=== PATIENT | female | born 1960 | race African-American/Black ===

== ENCOUNTER 2021-05-06 19:27 | Emergency (ER) | payer OTHER, SELFPAY ==
--- NOTE | ~2021-05-06 | XR_ITS ---
EXAMINATION: XR chest 1V CLINICAL INFORMATION: Cough, shortness of breath COMPARISON: None TECHNIQUE: XR chest 1V Tubes and lines: None Lungs and pleura: Both lungs are clear. Heart and mediastinum: The mediastinum is within normal limits.. Bones/soft tissue: Skeletal structures included are normal for patient's age. XR/XR chest 1V IMPRESSION: No radiographic evidence of acute infiltrates or failure.
[2021-05-06 19:39] VITALS: BP 159/81; PULSE 98; RESP 18; TEMP 36.6; O2SAT 98; BMI 34.0
[2021-05-06 20:14] LABS: COVID-19 Test Negative (Negative)
[2021-05-06 20:47] VITALS: BP 173/92; PULSE 79; RESP 18; TEMP 36.5; O2SAT 97
--- NOTE | 2021-05-06 21:59 | ED.URI ---
HPI - URI/Sore Throat General Chief Complaint: Upper Respiratory Symptoms Stated Complaint: cough sob Time Seen by Provider: 05/06/21 20:52 Source: patient Mode of arrival: ambulatory Limitations: no limitations History of Present Illness HPI Narrative: 61-year-old female presents to ED for dry coughing, body aches, fatigue, and chills SINCE WEDNESDAY. Patient denies any chest pain, lower extremity swelling, calf pain, coughing up blood, dizziness, or shortness of breath on exertion. Patient states vaccinated against COVID-19. Related Data Previous Rx's Medication Instructions Recorded azithromycin 250 mg tablet See Rx Instructions .ROUTE 05/06/21 .COMPLEX #6 tab benzonatate 100 mg capsule 100 mg PO TID PRN #15 cap 05/06/21 prednisone 20 mg tablet 60 mg PO DAILY 5 Days #15 tab 05/06/21 Allergies Allergy/AdvReac Type Severity Reaction Status Date / Time No Known Allergies Allergy Verified 05/06/21 21:58 Review of Systems Review of Systems: Yes all other systems are reviewed and are negative Constitutional: Constitutional: Reports as per HPI, Reports no additional constitutional complaints, Reports body ache(s), Reports chills, Reports fatigue and Denies snoring Eyes: Eyes: Reports as per HPI and Reports no additional eye complaints ENT: Reports system reviewed and no additional complaints, except as documented and Reports as per HPI Cardiovascular: Cardiovascular: Reports as per HPI, Reports no additional cardiovascular complaints, Denies chest pain, Denies dyspnea and Denies dyspnea on exertion Respiratory: Respiratory: Reports as per HPI, Reports no additional respiratory complaints, Reports no additional respiratory complaints, Reports cough, Denies hemoptysis, Denies excessive phlegm production, Denies pain on inspiration, Denies pain with cough, Denies dyspnea, Denies dyspnea on exertion, Denies snoring, Denies stridor and Denies wheezing Gastrointestinal: Gastrointestinal: Reports as per HPI and Reports no additional gastrointestinal complaints Genitourinary: Genitourinary: Reports no additional female genitourinary complaints and Reports as per HPI Musculoskeletal: Musculoskeletal: Reports no additional musculoskeletal complaints and Reports as per HPI Neurologic: Reports system reviewed and no additional complaints, except as documented and Reports as per HPI Psychiatric: Psychiatric: Reports no additional psychiatric complaints and Reports as per HPI Endocrine: Endocrine: Reports no additional endocrine complaints, Reports as per HPI and Reports fatigue Allergic/Immunologic: Allergic/Immunologic: Denies wheezing [facility] Social History Social History Advance Directives: No Physical Exam Vital Signs: Vital Signs: Last Vital Signs Temp 97.7 F 05/06/21 20:47 Pulse 79 05/06/21 20:47 Resp 18 05/06/21 20:47 BP 173/92 H 05/06/21 20:47 Pulse Ox 97 05/06/21 20:47 BMI result Body Mass Index 34.0 Const: General: cooperative, healthy appearing, comfortable, no acute distress, well developed, alert, awake and Physically active; No acute distress Orientation/consciousness: patient oriented x3 HENMT: Head: Yes normal to inspection, Yes No palpable skull fracture present, Yes normocephalic, Yes atraumatic, No abrasion, No Acrocyanosis present, No Kwon's sign, No contusion, No cranial bruits, No hematoma, No laceration, No occipital foramen tenderness, No palpable skull fracture, No raccoon eyes, No scalp lesion, No scalp tenderness, No Temporal artery tenderness present and No periorbital ecchymosis Eyes: General: appearance normal, both eyes and all related structures Neck: Neck: Yes normal visual inspection, Yes full ROM, Yes no lymphadenopathy, Yes no meningeal signs, Yes trachea midline, Yes supple, No anterior neck swelling and No tender Chest: Chest palpation & inspection: normal inspection of the chest and normal palpation of entire chest wall Resp: Effort & Inspection: normal respiratory effort and able to speak in complete sentences Auscultation: wheezes expiratory wheezes (SLIGHT) Cardio: Jugular venous distension: no JVD Heart sounds: S1 normal heart sound present and S2 normal heart sound present GI: Inspection: Yes normal to inspection and No abdominal wall ecchymosis Palpation (GI): Soft to palpation, not firm, nontender, no guarding and not rigid : General: No CVA tenderness and Yes no CVA tenderness Back/Spine/Pelvis: Back: no CVA tenderness, No CVA tenderness and No back tenderness Skin: General skin exam: no rashes or lesions noted and elasticity normal Neuro: General: patient oriented x3, gait normal, no meningeal signs and CN's II-XI intact bilaterally Cranial nerves: Yes CN's II-XII intact bilaterally Extrem: Other: Lower extremities negative for swelling, pitting edema, or calf tenderness General: Yes normal to inspection and Yes full ROM Psych: Appearance: grossly normal, well kempt and not disheveled Course Course Course Narrative: COVID swab and chest x-ray ordered. Reevaluation(s) Reevaluation #1: COVID swab came back negative. Chest x-ray negative for any pneumonia. History physical exam indicate uri/bronchitis. nOT Suspecting any cardiac abnormality. Denies having any chest pain. Patient denies any left shoulder, neck pain, or tingling in left upper extremity. Patient denies any nausea or any acid burning sensation in chest. Patient presently denies any shortness of breath. Patient states body aches, chills, dry cough. O2 saturation normal. Vital signs stable. Not suspecting respiratory distress. Patient ambulating WITHOUT ANy SHORTNESS OF BREATH AND WILL BE discharged with steroids with coughing medication. Time: 22:10 MDM - URI/Sore Throat MDM Narrative Medical decision making narrative: Bronchitis Lab Data Labs: Lab Results 05/06/21 Range/Units 19:52 COVID-19 (ANJELICA) Negative (Negative) COVID-19 Clin Com See Note Discharge Plan Discharge Clinical Impression: Upper respiratory infection, Bronchitis Patient Disposition: Home, Self-Care Instructions: Upper Respiratory Infection (ED), Acute Bronchitis (ED) Additional Instructions: COVID swab and chest x-ray came back normal. You will be treated as bronchitis. You're covid swab came back negative. Use your albuterol inhaler at home as needed. You will be discharged with steroids and coughing medication. Return to the ED for any chest pain, shortness of breath on exertion, swelling of lower extremities, calf pain, coughing up blood, fever, chills, nausea, vomiting, dizziness, weakness, neck pain, left shoulder pain, tingling/numbness left upper extremities, or any other concerning symptoms. Please follow-up with primary care provider Prescriptions: New prednisone 20 mg tablet 60 mg PO DAILY 5 Days Qty: 15 RF: 0 benzonatate 100 mg capsule 100 mg PO TID PRN (Reason: cough) Qty: 15 RF: 0 azithromycin 250 mg tablet See Rx Instructions .ROUTE .COMPLEX Qty: 6 RF: 0 Stand Alone Forms: Work/School Release Interventions: ED Discharge Assessment Last Done: 05/06/21 22:30 Discharge Date/Time: 05/06/21 22:31 Print Language: Latvian
== END 2021-05-06 22:31 | disposition home or self-care (01) ==
PROVIDERS: Emergency Provider Emergency Medicine; PCP Internal Medicine
DX: J20.8 Acute bronchitis due to other specified organisms (principal); M79.10 Myalgia, unspecified site; R05.9 Cough, unspecified; R06.02 Shortness of breath; Z79.899 Other long term (current) drug therapy; Z20.822 Contact with and (suspected) exposure to COVID-19
CPT/HCPCS: 36415; 71045; 87635; 99283; 99284

== ENCOUNTER 2022-03-01 12:31 | Emergency (ER) | payer OTHER, SELFPAY ==
--- NOTE | ~2022-03-01 | CT_ITS ---
EXAMINATION: CT ABDOMEN AND PELVIS WITH CONTRAST CLINICAL INFORMATION: Left lower abdominal pain COMPARISON: None TECHNIQUE: Multidetector volumetric images were obtained from the superior aspect of the liver through the pubic symphysis following administration 85 mL of Omnipaque 350 intravenous contrast. Sagittal and coronal reformatted images were obtained on the technologist's workstation. Oral contrast: Yes This CT examination was performed using dose optimization techniques as appropriate, variously including the following: *Automated exposure control *Adjustment of mA and/or kV according to patient size (this includes techniques or standardized protocols for targeted exams where dose is matched to indication/reason for exam; i.e. extremities or head) *Use of iterative reconstruction technique DLP: 639 mGy-cm FINDINGS: LUNG BASES: The visualized lung bases are unremarkable. LIVER, GALLBLADDER, AND BILIARY TREE: Enlarged fatty liver. No focal liver lesion or biliary duct dilatation. Small gallstone in the gallbladder. PANCREAS: Unremarkable. SPLEEN: Unremarkable. ADRENAL GLANDS: Unremarkable. KIDNEYS AND URETERS: Small bilateral low-attenuation renal lesions suggestive of cysts. Kidneys are otherwise unremarkable. BLADDER: Unremarkable. GASTROINTESTINAL TRACT: There is mild diverticulosis of the colon. There is a probable duodenal diverticulum adjacent to the head of the pancreas. There is question of mild wall thickening of the terminal ileum. There is question of a small bowel diverticulum in this region as well and some stranding of the surrounding fat. It is difficult to exclude of small bowel diverticulitis . Small and large bowel is otherwise normal. The appendix is normal.. ABDOMINAL WALL: Umbilical and periumbilical hernias containing fat. LYMPH NODES: Normal. VASCULAR: Unremarkable. PELVIC VISCERA: Lobular contour of the uterus and calcification probably representing a fibroid. Prominent pelvic vessels questionable for pelvic congestion, particularly on the left. OSSEOUS STRUCTURES: Degenerative changes of the lower lumbar spine. CT/CT abdomen pelvis w IV con IMPRESSION: Question wall thickening of the terminal ileum, small bowel diverticuli and mild diverticulitis of the terminal ileum. Mild diverticulosis of the colon. No evidence of colonic diverticulitis. Slightly enlarged fatty liver. Gallstone. Umbilical and periumbilical hernias containing fat. Question pelvic congestion and uterine fibroid. Fleischner guidelines were followed.
[2022-03-01 12:35] VITALS: BP 151/70; PULSE 79; RESP 16; TEMP 36.6; O2SAT 97; BMI 34.9
[2022-03-01 12:57] LABS: Appearance Urine Cloudy; Color Urine Yellow; Glucose Urine UA Negative (Negative); Leukocyte Esterase Urine Small (1+) (Negative); Nitrite Urine Negative (Negative); PH 8.5 (5.0-9.0); UMIC TRIGGER UA YES; Urine Blood Negative (Negative); Urine Ketones Negative (Negative); Urine Protein Negative (Neg-Trace)
[2022-03-01 12:59] LABS: Bacteria Urine None Seen (None Seen); Hyaline Casts Urine 0-2 /LPF (0-2); RBC Urine 0-2 /HPF (0-2)
--- NOTE | 2022-03-01 13:13 | ED_ITS ---
HPI - Abdominal Pain General Chief Complaint: Abdominal Pain Stated Complaint: L side stomach pains Time Seen by Provider: 03/01/22 13:12 History of Present Illness HPI narrative: Patient is 62-year-old female presents today with having abdominal pain. The abdominal pain it is left-sided. Associated with nausea. No vomiting. Patient is from home. Also notice a lot of gas. Burping. No coughing or congestion or upper respiratory symptoms. No diaphoresis. Patient is from home. Related Data Previous Rx's Medication Instructions Recorded azithromycin 250 mg tablet See Rx Instructions PO .COMPLEX #6 05/06/21 tabs benzonatate 100 mg capsule 100 mg PO TID PRN cough #15 caps 05/06/21 prednisone 20 mg tablet 60 mg PO DAILY 5 days #15 tabs 05/06/21 amoxicillin 875 mg-potassium 1 tab PO BID 2 weeks #28 tabs 03/01/22 clavulanate 125 mg tablet ondansetron 4 mg disintegrating 4 mg PO TID PRN nausea and 03/01/22 tablet vomiting 5 days #10 tabs Allergies Allergy/AdvReac Type Severity Reaction Status Date / Time No Known Allergies Allergy Verified 05/06/21 21:58 Review of Systems Review of Systems Positive abdominal pain on the left side Yes all other systems are reviewed and are negative [facility] Past Medical History Attestation statement: The following information was validated with the patient. Social History Social History Advance Directives: No Advance Directives Information Provided: Yes Physical Exam ED Vital Signs: Vital Signs - 24 hr 03/01/22 12:35 03/01/22 14:09 Temperature 97.8 F 97.9 F Pulse Rate 79 71 Respiratory Rate 16 14 Blood Pressure 151/70 H 144/59 H Pulse Oximetry 97 96 Oxygen Delivery Method Room Air Room Air BMI result Body Mass Index 34.9 Appearance: Alert. Oriented X3. No acute distress. Eyes: Pupils equal, round and reactive to light. ENT: Pharynx normal. Neck: Normal inspection. Neck supple. No lymph nodes noted. No crepitus CVS: Normal heart rate and rhythm. Pulses normal. Normal S1 and S2 Respiratory: No respiratory distress. Breath sounds normal. No Wheezing. No rales Abdomen: Mild left-sided tenderness no rebound or guarding Skin: Skin warm and dry. Normal skin color. Normal skin turgor. Extremities: No lower extremity edema. Neurovascular intact to all extremities. No Lacerations. No Rash Neuro: Oriented X 3. No motor deficit. No sensory deficit. Moving all extermities. No slurred speech MDM - Abdominal Pain MDM Narrative Medical decision making narrative: Positive left-sided abdominal pain. CT scan positive for mild diverticulitis. No abscess no perforation. We will go ahead and give a dose of Rocephin Flagyl here in the emergency department. Discharged home on Augmentin. Close follow- up on an outpatient basis. Repeat abdominal exam soft nontender. Patient's white count is normal. Medical Records Attestation: I reviewed the patient's medical records. Lab Data Attestation: I reviewed the patient's lab results. Result diagrams: 03/01/22 13:23 03/01/22 14:04 Labs: Lab Results 03/01/22 03/01/22 03/01/22 Range/Units 12:46 13:23 14:04 WBC 7.5 (4.8-10.8) X10*3/uL RBC 4.21 (4.20-5.50) X10*6/uL Hgb 12.9 (12.0-16.0) g/dl Hct 37.8 (37.0-47.0) % MCV 89.8 (80.0-98.0) fL MCH 30.6 (27.0-33.0) pg MCHC 34.1 (31.0-35.0) g/dl RDW 12.1 (11.0-16.0) % Plt Count 271 (160-400) X10*3/uL MPV 11.6 (9.4-12.3) fL Immature Gran % (Auto) 0.3 (0.0-0.4) % Neut % (Auto) 51.9 (45-73) % Lymph % (Auto) 36.3 (20-40) % [place] % (Auto) 7.5 (2-11) % Eos % (Auto) 3.5 (0-4) % Baso % (Auto) 0.5 (0-2) % Lymph # (Auto) 2.7 (1.2-4.9) X10*3/uL [place] # (Auto) 0.6 (0.1-1.2) X10*3/uL Eos # (Auto) 0.3 (0.0-0.4) X10*3/uL Baso # (Auto) 0.0 (0.0-0.2) X10*3/uL Abs Immat Gran (auto) 0.02 (0.00-0.03) X10*3/uL Absolute Neuts (auto) 3.9 (2.0-8.3) x10*3/uL Absolute Nucleated RBC 0.000 (0.0-0.012) X10*3/uL Nucleated RBC % (auto) 0.0 (0.0-0.2) /100WBC Sodium 140 (135-145) mmol/L Potassium 4.4 (3.3-5.1) mmol/L Chloride 103 (96-108) mmol/L Carbon Dioxide 25 (22-29) mmol/L Anion Gap 16 (12-20) BUN 18 H (9-16) mg/dL Creatinine 0.72 (0.5-1.4) mg/dL Estim Creat Clear Calc 77.5 Estimated GFR > 60 Random Glucose 149 H (60-115) mg/dL Calcium 9.7 (8.4-10.2) mg/dL Total Bilirubin < 0.2 (0.0-1.0) mg/dL Direct Bilirubin < 0.2 (0.0-0.5) mg/dL AST 21 (5-31) U/L ALT 23 (0-31) U/L Alkaline Phosphatase 63 (39-117) U/L Total Protein 7.3 (6.5-8.0) g/dL Albumin 4.4 (3.5-5.0) g/dL Lipase 47 (8-78) U/L Urine Color Yellow Urine Appearance Cloudy Urine pH 8.5 (5.0-9.0) Ur Specific [place] 1.020 (1.005-1.025) Urine Protein Negative (Neg-Trace) mg/dL Urine Glucose (UA) Negative (Negative) mg/dL Urine Ketones Negative (Negative) mg/dL Urine Blood Negative (Negative) Urine Nitrite Negative (Negative) Ur Leukocyte Esterase Small (1+) H (Negative) Urine RBC 0-2 (0-2) /HPF Urine WBC 6-10 H (0-5) /HPF Ur Squamous Epith Cells 3-5 (0-2) /HPF Urine Bacteria None Seen (None Seen) Hyaline Casts 0-2 (0-2) /LPF Discharge Plan Discharge Clinical Impression: Diverticulitis Patient Disposition: Home, Self-Care Instructions: Diverticulitis (ED) Prescriptions: New ondansetron 4 mg tablet,disintegrating 4 mg PO TID PRN (Reason: nausea and vomiting) 5 Days Qty: 10 0RF amoxicillin-pot clavulanate 875-125 mg tablet 1 tab PO BID 14 Days Qty: 28 0RF No Action prednisone 20 mg tablet 60 mg PO DAILY 5 Days Qty: 15 0RF benzonatate 100 mg capsule 100 mg PO TID PRN (Reason: cough) Qty: 15 0RF azithromycin 250 mg tablet See Rx Instructions .ROUTE .COMPLEX Qty: 6 0RF Rx Instructions: For 250 mg dose pack: take 500 mg today (day 1), then 250 mg for 4 days (days 2-5) Referrals: Rivera Chao MD [Primary Care Provider] -
[2022-03-01 13:27] LABS: MANUAL DIFF FLAG NO
[2022-03-01 13:28] LABS: Basophils Percent Auto 0.5 % (0-2); Eosinophils Absolute Auto 0.3 X10*3/uL (0.0-0.4); Eosinophils Percent Auto 3.5 % (0-4); Hematocrit 37.8 % (37.0-47.0); Hemoglobin 12.9 g/dl (12.0-16.0); Imm Gran Abs Auto 0.02 X10*3/uL (0.00-0.03); Imm Gran Pct Auto 0.3 % (0.0-0.4); Lymphocytes Absolute Auto 2.7 X10*3/uL (1.2-4.9); Lymphocytes Percent Auto 36.3 % (20-40); Mean Corpuscular HGB Conc 34.1 g/dl (31.0-35.0); Mean Corpuscular Hemoglobin 30.6 pg (27.0-33.0); Mean Corpuscular Volume 89.8 fL (80.0-98.0); Mean Platelet Volume 11.6 fL (9.4-12.3); Monocytes Absolute Auto 0.6 X10*3/uL (0.1-1.2); Monocytes Percent Auto 7.5 % (2-11); Neutrophils Absolute Auto 3.9 x10*3/uL (2.0-8.3); Neutrophils Percent Auto 51.9 % (45-73); Platelet Count 271 X10*3/uL (160-400); Red Blood Count 4.21 X10*6/uL (4.20-5.50); Red Cell Distribution Width 12.1 % (11.0-16.0); White Blood Count 7.5 X10*3/uL (4.8-10.8)
[2022-03-01] MEDS: HYDROmorphone HCl 0.5 MG/0.5 ML SYRINGE IVPUSH (13:32)
[2022-03-01] MEDS: ondansetron HCL 4 MG/2 ML VIAL IVPUSH (13:32)
[2022-03-01 14:09] VITALS: BP 144/59; PULSE 71; RESP 14; TEMP 36.6; O2SAT 96
[2022-03-01 14:46] LABS: Alanine Aminotransferase 23 U/L (0-31); Albumin Level 4.4 g/dL (3.5-5.0); Alkaline Phosphatase 63 U/L (39-117); Anion Gap 16 (12-20); Aspartate Amino Transferase 21 U/L (5-31); Bilirubin Direct < 0.2 mg/dL (0.0-0.5); Bilirubin Total < 0.2 mg/dL (0.0-1.0); Blood Urea Nitrogen 18 mg/dL (9-16); Calcium 9.7 mg/dL (8.4-10.2); Carbon Dioxide 25 mmol/L (22-29); Chloride 103 mmol/L (96-108); Creatinine Clr Calc Pharmacy 77.5; Estimated Glomerular Filt Rate > 60; Glucose Random 149 mg/dL (60-115); Lipase 47 U/L (8-78); Potassium 4.4 mmol/L (3.3-5.1); Sodium 140 mmol/L (135-145); Total Protein 7.3 g/dL (6.5-8.0)
[2022-03-01] MEDS: iohexoL 350 MG/ML 100 ML INFUS..BTL IV (15:04)
[2022-03-01 16:39] VITALS: BP 135/67; PULSE 70; RESP 16; TEMP 36.2; O2SAT 97
== END 2022-03-01 16:54 | disposition home or self-care (01) ==
PROVIDERS: Emergency Provider Emergency Medicine Emergency Medical Services; PCP Internal Medicine
DX: K57.32 Diverticulitis of large intestine without perforation or abscess without bleeding (principal); R10.9 Unspecified abdominal pain; Z79.899 Other long term (current) drug therapy
CPT/HCPCS: 36415; 74177; 80048; 80076; 81001; 83690; 85025; 96374; 96375; 99283; J1170; J2405; Q9967

== ENCOUNTER 2022-10-17 07:23 | Outpatient (REF) | payer OTHER, SELFPAY ==
--- NOTE | ~2022-10-17 | MM_ITS ---
EXAMINATION: MM SCREENING DIGITAL BREAST TOMOSYNTHESIS, BILATERAL CLINICAL INFORMATION: Screening. Asymptomatic. The lifetime risk of breast cancer based on the Tyrer-Cuzick Model is 4%. COMPARISON: Outside mammography: 03/07/2019, 03/01/2019, 03/13/2017, 01/10/2016 ([facility]). TECHNIQUE: Digital breast tomosynthesis is performed in both the craniocaudal and mediolateral oblique views along with computer-aided detection (CAD). Synthesized 2D images are generated from the tomosynthesis. FINDINGS: There are scattered areas of fibroglandular density (ACR BI-RADS breast composition Category b). Parenchymal pattern is similar to prior outside studies. There is no developing density or interval mass or architectural abnormality. There are increased bilateral random scattered round, coarse, and ductal secretory calcifications. The axilla and skin contours are unremarkable. No significant changes from prior outside studies. MM/MM tomosynthesis screening BI IMPRESSION: No mammographic evidence of malignancy. ASSESSMENT: BI-RADS 2: Benign RECOMMENDATION: Routine annual mammography screening. This patient's information was entered into a reminder system with a target due date for their next mammogram.
== END 2022-10-17 07:24 | disposition home or self-care (01) ==
LOC: HO.MAMMO 07:23
PROVIDERS: PCP Internal Medicine; Visit Provider Internal Medicine
DX: Z12.31 Encounter for screening mammogram for malignant neoplasm of breast (principal)
CPT/HCPCS: 77063; 77067

== ENCOUNTER → 2022-11-10 08:48 | Outpatient (BNVA) | payer OTHER, SELFPAY | PROVIDERS: PCP Internal Medicine; Visit Provider Surgery Vascular Surgery | DX: I83.12 Varicose veins of left lower extremity with inflammation (principal) | CPT/HCPCS: 99202 ==

== ENCOUNTER 2022-11-25 08:04 | Outpatient (REF) | payer OTHER, SELFPAY ==
--- NOTE | ~2022-11-25 | US_ITS ---
EXAMINATION: US LOWER EXTREMITY VENOUS (REFLUX EXAM), BILATERAL CLINICAL INDICATION: Varicose veins COMPARISON: None. TECHNIQUE: Color flow triplex imaging and compression Doppler was performed to evaluate both the deep and the superficial systems bilaterally. To evaluate the superficial system, the examination was performed in the upright position. Color-flow Doppler ultrasound and compression ultrasound were utilized. In addition, maneuvers were utilized to demonstrate reflux. FINDINGS: 1. DEEP VENOUS ULTRASOUND OF THE RIGHT LOWER EXTREMITY: Common Femoral Vein: Compressible, normal respiratory variation and augmented flow. Femoral Vein: Compressible, normal color flow and augmentation. Popliteal Vein: Compressible, normal augmentation. Deep Reflux: There is no evidence of reflux in the deep system in either the common femoral vein or the popliteal vein. There is no evidence of a Raphael's cyst. 2. SUPERFICIAL ULTRASOUND WITH DOPPLER OF RIGHT LOWER EXTREMITY: GREAT SAPHENOUS VEIN: Saphenofemoral Junction: 0.7 cm; Reflux: 0 ms Proximal Thigh: 0.5 cm; Reflux: 0 ms Mid Thigh: 0.4 cm; Reflux: 0 ms Above Knee: 0.3 cm; Reflux: 0 ms At Knee: 0.5 cm; Reflux: 0 ms Below Knee: 0.3 cm; Reflux: 0 ms Mid Calf: 0.2 cm; Reflux: 0 ms Ankle: 0.3 cm; Reflux: 0 ms DUPLICATED MEDIAL GREAT SAPHENOUS VEIN: Diameter: 0.3cm Reflux: NA DUPLICATED LATERAL GREAT SAPHENOUS VEIN: Diameter: None imaged Reflux: NA SMALL SAPHENOUS VEIN: Proximal: 0.5 cm; Reflux: 0 ms Distal: 0.2 cm; Reflux: 0 ms VEIN OF GIACOMINI: Size: NA Reflux: NA PERFORATORS: Location: Multiple calf perforators Size: 0.2 cm Reflux: NA VARICOSITIES: Location: None imaged Size: NA Reflux: NA 3. DEEP VENOUS ULTRASOUND OF THE LEFT LOWER EXTREMITY: Common Femoral Vein: Compressible, normal respiratory variation and augmented flow. Femoral Vein: Compressible, normal color flow and augmentation. Popliteal Vein: Compressible, normal augmentation. Deep Reflux: There is no evidence of reflux in the deep system in either the common femoral vein or the popliteal vein. There is no evidence of a Raphael's cyst. 4. SUPERFICIAL ULTRASOUND WITH DOPPLER OF LEFT LOWER EXTREMITY: GREAT SAPHENOUS VEIN: Saphenofemoral Junction: 0.6 cm; Reflux: 0 ms Proximal Thigh: 0.4 cm; Reflux: 0 ms Mid Thigh: 0.3 cm; Reflux: 1144 ms Above Knee: 0.3 cm; Reflux: 0 ms At Knee: 0.3 cm; Reflux: 0 ms Below Knee: 0.2 cm; Reflux: 0 ms Mid Calf: 0.2 cm; Reflux: 0 ms Ankle: 0.2 cm; Reflux: 0 ms DUPLICATED MEDIAL GREAT SAPHENOUS VEIN: Diameter: 0.4cm Reflux: NA DUPLICATED LATERAL GREAT SAPHENOUS VEIN: Diameter: None imaged Reflux: NA SMALL SAPHENOUS VEIN: Proximal: 0.5 cm; Reflux: 0 ms Distal: 0.2 cm; Reflux: 0 ms VEIN OF GIACOMINI: Size: NA Reflux: NA PERFORATORS: Location: Multiple calf perforators Size: 0.2 cm Reflux: NA VARICOSITIES: Location: Thigh Size: 0.3cm Reflux: NA US/US venous duplex LE BI IMPRESSION: 1. Bilateral calf perforators and multiple left thigh varicose veins. 2. Segmental reflux in the left great saphenous vein at the mid thigh. 3. No significant reflux in the small saphenous veins bilaterally.
== END 2022-11-25 08:05 | disposition home or self-care (01) ==
LOC: HO.US 08:04
PROVIDERS: PCP Internal Medicine; Visit Provider Surgery Vascular Surgery
DX: I83.12 Varicose veins of left lower extremity with inflammation (principal)
CPT/HCPCS: 93970

== ENCOUNTER 2023-01-19 08:56 | Outpatient (AMB) | payer OTHER, SELFPAY ==
[2023-01-19 08:57] VITALS: BMI 32.1
--- NOTE | 2023-01-19 08:57 | A.OFFVIS_ITS ---
Intake Vital Signs 01/19/23 08:57 Height 5 ft 1 in Weight 170 lb BMI 32.1 Intake Visit Reasons: Follow Up 11/25 Intake Note: follow up US 11/25/22, pt states that she has swelling, numbness and pins and needles. States she has been wearing compression socks and they do help with swelling, she works on her feet everyday. States when she doesn't wear them she gets swelling. States she has large VV on bilateral LE. States she also sometimes gets numbness in her hands Accompanied by: Self / Same As Patient Allergies rubber, unspecified Allergy (Mild, Verified 01/19/23 09:01) Rash coppertone sunscreen Allergy (Severe, Uncoded 01/19/23 09:01) Rash HPI Follow Up 11/25 HPI Details Very pleasant 62-year-old female presents for follow-up regarding swollen lower extremities. She has undergone venous insufficiency testing. She reports that the stockings did provide a significant amount of relief. She has been doing relatively well with that. Of note she is a diabetic and a nonsmoker. Her only issue at the current time is left lateral thigh varicosity but it is not of significant discomfort for her. She now presents for follow-up with venous insufficiency testing. FOR[facility]LY [facility], LATER [facility] Medical History (Updated 01/19/23 @ 09:03 by CATHIE Presley) Diabetes Social History Patient Tobacco Use Status: Never used Tobacco Review of Systems Const Reports as per HPI ENT Reports no additional complaints Card Denies chest pain, Denies chest pain at rest and Denies chest pain with activity Resp Denies chest congestion and Denies cough GI Reports no additional complaints Musc Details: pain over varicosities, aching of lower extremities, swelling, cramping, heaviness and tiredness, itching Denies abnormal gait Skin/Breast Reports pruritus and Denies wounds Neuro Reports no additional complaints and Denies abnormal gait Psych Denies no additional complaints Physical Exam Vital Signs: BMI result Body Mass Index 32.1 Const General: cooperative, healthy appearing and comfortable Orientation/consciousness: oriented to person, oriented to place and oriented to time Neck Carotids: no bruits Chest Chest palpation & inspection: normal inspection of the chest and normal palpation of entire chest wall Resp Effort & Inspection: normal respiratory effort and able to speak in complete sentences Cardio Rate: regular rate Heart sounds: S1 normal heart sound present and S2 normal heart sound present Peripheral pulses: Peripheral pulses 2+ throughout GI Inspection: Yes normal to inspection Skin Other: +2 edema, large rope-like varicosities greater than 4 mm left lateral thigh CEAP Classification C4 - skin color changes Ep - Etiology Primary As - superficial veins P - reflux General skin exam: dry skin Neuro General: oriented to person, oriented to place and oriented to time Extrem Right lower extremity: full ROM, normal capillary refill and edema Left lower extremity: full ROM, normal capillary refill and edema Psych Mental Status: mental status grossly normal Results Reviewed Results Reviewed: Brief summary of venous insufficiency testing is as follows: right great saphenous vein: negative right small saphenous vein: negative right accessory vein: none present left great saphenous vein: negative left small saphenous vein: negative left accessory vein: none present Please note there is no evidence of any venous aneurysms or significant tortuosity Assessment & Plan Assessment & Plan (1) Varicose veins of left lower extremity with inflammation: Code(s): I83.12 - Varicose veins of left lower extremity with inflammation Plan: In short patient is negative for any significant venous insufficiency. Would continue with conservative measures including compression elevation and exercise. She does have this large left lateral thigh varicosity which she is relatively asymptomatic from at the current time. Should that become an issue in the future happy to see her back. She will follow up with us on an as-needed basis. Thank you for allowing us to assist in her care. If there are any questions or concerns please do not hesitate to contact us. Coding Level of Care Code Est Pt Level 4 (89888) Diagnoses Varicose veins of left lower extremity with inflammation I83.12
== END 2023-01-19 09:24 | disposition home or self-care (01) ==
PROVIDERS: PCP Internal Medicine; Visit Provider Surgery Vascular Surgery
DX: I83.12 Varicose veins of left lower extremity with inflammation (principal)
CPT/HCPCS: 99213

== ENCOUNTER → 2023-01-19 08:56 | Outpatient (BNVA) | payer OTHER, SELFPAY | PROVIDERS: PCP Internal Medicine; Visit Provider Surgery Vascular Surgery | DX: I83.12 Varicose veins of left lower extremity with inflammation (principal) | CPT/HCPCS: 99212 ==

== ENCOUNTER 2023-02-25 11:03 | Outpatient (REF) | payer OTHER, SELFPAY ==
--- NOTE | ~2023-02-25 | XR_ITS ---
EXAMINATION: XR CHEST CLINICAL INFORMATION: 1 month of cough COMPARISON: 05/06/2021 TECHNIQUE: 2 views of the chest were obtained. FINDINGS: No significant abnormality is noted involving the heart, lungs, mediastinum, bony thorax or soft tissues. XR/XR chest 2V IMPRESSION: Unremarkable examination.
== END 2023-02-25 11:04 | disposition home or self-care (01) ==
LOC: HO.HHCX 11:03
PROVIDERS: Visit Provider Family Medicine
DX: J40 Bronchitis, not specified as acute or chronic (principal)
CPT/HCPCS: 71046

== ENCOUNTER 2023-11-04 07:38 | Outpatient (REF) | payer BC, SELFPAY ==
--- NOTE | ~2023-11-04 | MM_ITS ---
EXAMINATION: MM SCREENING DIGITAL BREAST TOMOSYNTHESIS, BILATERAL CLINICAL INFORMATION: Screening. Asymptomatic. COMPARISON: Mammography: This study is compared with prior exams dating back to 2019. TECHNIQUE: Digital breast tomosynthesis is performed in both the craniocaudal and mediolateral oblique views along with computer-aided detection (CAD). Synthesized 2D images are generated from the tomosynthesis. FINDINGS: The breasts are heterogeneously dense, which may obscure small masses (ACR BI-RADS breast composition Category c). There are no significant masses, abnormal calcifications, or other abnormalities. There is bilateral, unchanged calcifications in the anterior thirds of each breast. MM/MM tomosynthesis screening BI IMPRESSION: No mammographic evidence of malignancy. ASSESSMENT: BI-RADS BI-RADS 2 - Benign Findings RECOMMENDATION: Routine annual mammography screening. 1 year F/U This examination should not preclude the clinical evaluation of a suspicious palpable abnormality. This patient's information was entered into a reminder system with a target due date for their next mammogram.
== END 2023-11-04 07:39 | disposition home or self-care (01) ==
LOC: HO.MAMMO 07:38
PROVIDERS: PCP Internal Medicine; Visit Provider Internal Medicine
DX: Z12.31 Encounter for screening mammogram for malignant neoplasm of breast (principal)
CPT/HCPCS: 77063; 77067

== ENCOUNTER → 2023-11-04 08:00 | Outpatient (BNV) | payer BC, SELFPAY | PROVIDERS: PCP Internal Medicine; Visit Provider Radiology Diagnostic Radiology | DX: Z12.31 Encounter for screening mammogram for malignant neoplasm of breast (principal) | CPT/HCPCS: 77063; 77067 ==

== ENCOUNTER 2023-12-07 16:03 | Outpatient (REF) | payer BC, SELFPAY ==
[2023-12-07 18:03] LABS: Anion Gap 14 (12-20); Appearance Urine Clear; Blood Urea Nitrogen 20 mg/dL (9-16); Calcium 10.4 mg/dL (8.4-10.2); Carbon Dioxide 32 mmol/L (22-29); Chloride 100 mmol/L (96-108); Color Urine Yellow; Estimated Glomerular Filt Rate > 60; Glucose Fasting 149 mg/dL (60-99); Glucose Urine UA >=1000 mg/dL (Negative); Leukocyte Esterase Urine Negative (Negative); Nitrite Urine Negative (Negative); PH 6.5 (5.0-9.0); Potassium 3.9 mmol/L (3.3-5.1); Sodium 142 mmol/L (135-145); Specific Gravity - Urine >= 1.030 (1.005-1.025); UMIC TRIGGER UA YES; Urine Blood Negative (Negative); Urine Ketones Negative (Negative); Urine Protein Negative (Neg-Trace)
[2023-12-07 18:05] LABS: Bacteria Urine None Seen (None Seen); Hyaline Casts Urine 0-2 /LPF (0-2); RBC Urine 0-2 /HPF (0-2); Squamous Epithelial Cell Urine 0-2 /HPF (0-2); WBC Urine 0-5 /HPF (0-5)
== END 2023-12-07 16:04 | disposition home or self-care (01) ==
LOC: HO.CHCLDS 16:03
PROVIDERS: Visit Provider Internal Medicine
DX: I83.812 Varicose veins of left lower extremity with pain (principal); E11.65 Type 2 diabetes mellitus with hyperglycemia; Z79.4 Long term (current) use of insulin
CPT/HCPCS: 36415; 80048; 81001

== ENCOUNTER 2023-12-14 08:36 | Outpatient (REF) | payer BC, SELFPAY ==
[2023-12-14 14:05] LABS: Appearance Urine Clear; Color Urine Yellow; Glucose Urine UA >=1000 mg/dL (Negative); Leukocyte Esterase Urine Small (1+) (Negative); Nitrite Urine Negative (Negative); Specific Gravity - Urine 1.025 (1.005-1.025); UMIC TRIGGER UA YES; Urine Blood Negative (Negative); Urine Ketones Negative (Negative); Urine Protein Negative (Neg-Trace)
[2023-12-14 14:11] LABS: Bacteria Urine None Seen (None Seen); Hyaline Casts Urine 0-2 /LPF (0-2); RBC Urine 0-2 /HPF (0-2)
[2023-12-14 14:32] LABS: Anion Gap 14 (12-20); Blood Urea Nitrogen 17 mg/dL (9-16); Calcium 10.4 mg/dL (8.4-10.2); Carbon Dioxide 31 mmol/L (22-29); Chloride 100 mmol/L (96-108); Estimated Glomerular Filt Rate > 60; Glucose Random 96 mg/dL (60-115); Potassium 3.5 mmol/L (3.3-5.1); Sodium 141 mmol/L (135-145)
== END 2023-12-14 08:37 | disposition home or self-care (01) ==
LOC: HO.CHCLDS 08:36
PROVIDERS: Visit Provider Internal Medicine
DX: E11.65 Type 2 diabetes mellitus with hyperglycemia (principal); Z79.4 Long term (current) use of insulin
CPT/HCPCS: 36415; 80048; 81001

== ENCOUNTER 2023-12-28 07:57 | Outpatient (REF) | payer BC, SELFPAY ==
[2023-12-29 05:29] LABS: Parathyroid Hormone Intact 38.5 pg/mL (8.7-77.1)
== END 2023-12-28 07:58 | disposition home or self-care (01) ==
LOC: HO.CHCLDS 07:57
PROVIDERS: Visit Provider Internal Medicine
DX: E83.52 Hypercalcemia (principal)
CPT/HCPCS: 36415; 83970

== ENCOUNTER 2024-01-27 08:30 | Outpatient (AMB) | payer BC, SELFPAY ==
--- NOTE | 2024-01-27 08:49 | A.OFFVIS_ITS ---
Vital Signs 01/27/24 08:50 Height 5 ft 1 in Weight 170 lb BMI 32.1 Intake Visit Reasons: Leg Pain Intake Note: Follow up PRN for Left LE VV, was seen a year ago and had the large VV then but has become more painful. She works on her feet and causes her vein to be more painful. Wears compression socks and they do provide some relief Visual Aid Expert Required: No Accompanied by: Self / Same As Patient Allergies rubber, unspecified Allergy (Mild, Verified 01/27/24 08:54) Rash coppertone sunscreen Allergy (Severe, Uncoded 01/27/24 08:54) Rash HPI HPI Leg Pain: Details: Very pleasant 63-year-old female presents for follow-up regarding lower extremity pain. She reports that she is having left lower extremity lateral thigh pain. She had seen us in the past for venous disease and was negative for any significant venous insufficiency. At the current time she does have this lateral thigh varicosity but in general complains of a generalized muscular pain. It is throughout the entire thigh and not just localized to the varicosity. Of note she does feel relief with Voltaren. [facility]LY [facility] Medical History Diabetes Social History Patient Tobacco Use Status: Never used Tobacco Review of Systems Const All systems reviewed & are unremarkable except as noted in HPI and below Reports no additional complaints ENT Reports Normal hearing present Card Denies chest pain, Denies chest pain at rest, Denies chest pain with activity and Denies pedal edema Resp Denies cough GI Denies abdominal pain Musc Denies abnormal gait, Denies muscle cramps and Denies radiating pain into limb Skin/Breast Denies skin ulcer and Denies wounds Neuro Reports Normal hearing present and Denies abnormal gait Psych Reports no additional complaints Physical Exam Vital Signs: BMI result Body Mass Index 32.1 Const General: cooperative, healthy appearing and comfortable Orientation/consciousness: oriented to person, oriented to place and oriented to time HEENT Head: Yes normal to inspection Neck Neck: Yes normal visual inspection Carotids: no bruits Chest Chest palpation & inspection: normal inspection of the chest Resp Effort & Inspection: normal respiratory effort and able to speak in complete sentences Auscultation: clear to auscultation bilaterally, no crackles, no rales, no rhonchi and no wheezes Cardio Rate: regular rate Rhythm: regular rhythm Heart sounds: S1 normal heart sound present and S2 normal heart sound present Bruits: no carotid bruits Peripheral pulses: Peripheral pulses 2+ throughout GI Inspection: Yes normal to inspection Skin Wounds: no wounds Hair: normal Neuro General: oriented to person, oriented to place and oriented to time Cranial nerves: Yes CN's II-XII intact bilaterally and Yes Normal hearing present Cognition (Neuro): normal cognition Motor exam (neuro): 5/5 motor strength present throughout Extrem Other: venous exam: +1 edema left lateral thigh Singulair varicosity General: No clubbing, No cyanosis and Yes edema Psych Appearance: grossly normal Mental Status: mental status grossly normal Speech and movement: Normal speech and movement present Assessment & Plan Assessment & Plan (1) Varicose veins of left lower extremity with inflammation: Code(s): I83.12 - Varicose veins of left lower extremity with inflammation Category: Medical Plan: In short patient has has a previous history of negative venous insufficiency. She does have this lateral thigh varicosity which is singular in nature and does not look inflamed at the current time. I do believe her pain is more musculoskeletal as it is relieved by topical [id number] Voltaren. I did discuss conservative measures including use of anti-inflammatories for the current muscular pain. Hopefully that will resolve the situation should it not improve happy to Yoko address that varicosity but I am not sure that will improve her pain. I did schedule her for a three-month follow-up just to reassess the situation. We did discuss routine conservative measures including compression elevation and exercise. Thank you for allowing us to assist in her care Coding Level of Care Code Est Pt Level 3 (04652) Diagnoses Varicose veins of left lower extremity with inflammation I83.12
[2024-01-27 08:50] VITALS: BMI 32.1
== END 2024-01-27 09:37 | disposition home or self-care (01) ==
PROVIDERS: PCP Internal Medicine; Visit Provider Surgery Vascular Surgery
DX: I83.12 Varicose veins of left lower extremity with inflammation (principal)
CPT/HCPCS: 99213

== ENCOUNTER → 2024-01-27 08:30 | Outpatient (BNVA) | payer BC, SELFPAY | PROVIDERS: PCP Internal Medicine; Visit Provider Surgery Vascular Surgery ==

== ENCOUNTER 2024-12-19 14:16 | Outpatient (REF) | payer BC, SELFPAY ==
--- OUTSIDE RECORDS SUMMARY | 2024-12-19 15:31 | XMS_ITS | Encounter Summary ---
Author Organization [employer] Address [address] [place] [address] Care Team Providers Care Blow Pit Operator Name Role Phone Rivera Chao MD Primary Care Prov ider Reason for Visit * Reason Comments Med Change Request Encounter Details Date Type Department Care Team ([facility] st Contact Info) Description 08/16/2023 Refill [facility] [address], [place] [phone] Rivera Chao MD [address] [place] [address] Social History Tobacco Use Types Packs/Day Years Used Date Smoking Tobacco: Never Passive Smoke Exposure: Never Smokeless Tobacco: Never Alcohol Use Standard Drinks/Week Comments Never 0 (1 standard drink = 0.6 oz pur e alcohol) Depression Answer Date Recorded Patient Health Questionnaire-9 Score 5 07/22/2023 Patient Health Questionnaire-9 Score 5 07/22/2023 Last PHQ-9: Questionnaire Data Not on file 0 07/22/2023 Housing Stability Answer Date Recorded What is your housing situation today? I have idania smith 08/04/[address] you li ve. Do you have problems with any of the following? None of the above 08/04/2023 Food Insecurity Answer Date Recorded Within the past 12 months, y ou worried that your food would run out before you got money to buy more: Never True 08/04/2023 Within the past 12 months,th e food you bought just didn't last and you didn't have enough money to get more: Never True 10/2023 Transportation Answer Date Recorded In the past 12 months, has l ack of transportation kept you from medical appts, meetings, work or from getting things needed for daily living? No 08/04/2023 Utilities Answer Date Recorded In the past 12 months, has t he electric, gas, oil or water company threatened to shut off services in your home? No 08/04/2023 Depression Answer Date Recorded Patient Health Questionnaire-2 Score 2 07/22/2023 Comments Unknown Sex and Gender Information Value Date Recorded Sex Assigned at Female 03/30/2022 10:37 AM EDT Legal Sex Female 10:37 AM EDT Gender Identity Female 03/30/2022 10:37 AM EDT Sexual Orientation Straight 03/30/2022 10 :37 AM EDT documented as of this encounter Plan of Treatment Upcoming Encounters Date Type Department Care Team (Late st Contact Info) Description 12/28/2024 3:30 PM EDT Telemedicine [facility] [address] [place] [address] Rivera Chao MD [address] [place] [address] documented as of this encounter Visit Diagnoses Not on filedocumented in this encounter Additional Health Concerns Assessment Noted Time PHQ-9 Depression Total Score: 5 07/22/19 24 2:20 PM EST documented as of this encounter Care Teams Blow Pit Operator Relationship Specialty Start Date End Date Rivera Chao MD [address] [place] [address] PCP - General Internal Medicine 10/15/20 documented as of this encounter
--- OUTSIDE RECORDS SUMMARY | 2024-12-19 15:31 | XMS_ITS | Clinical Summary ---
Author Organization [facility] Address [address] [place] [address] Phone Care Team Providers Care Unix Administrator Name Role Phone Rivera Chao Primary Care Provide r Social History Tobacco Use Types Packs/Day Years Used Date Smoking Tobacco: Never Assessed Comments Unknown Sex and Gender Information Value Date Recorded Sex Assigned at Not on file Legal Sex Female 5:07 AM EST Gender Identity Not on file Sexual Orientation Not on file Plan of Treatment Upcoming Encounters Date Type Department Care Team ([facility] Contact Info) Description 02/01/2025 2:30 PM EDT Office Visit Orthopedic Surgery - [place] [phone] [phone] Harshil Yusuf, DPM [address] [address] Health Maintenance Due Date Last Done Comments Diabetes: Annual GFR (Glomer ular Filtration Rate) 1960 Diabetes: Annual Foot Exam 02/09/1968 Diabetes: Annual Retina Eye Exam 02/09/1968 DTaP,Tdap,and Td Vaccines (1 - Tdap) 1977 Pneumococcal Vaccine: 50+ Ye ars (1 of 2 - PCV) 1977 Zoster Vaccines (1 of 2) 02/09/2008 Breast Cancer Screening 03/01/2021 03/01/2019 COVID-19 Vaccine ( - 2023-2 5 season) 2024 Depression Screening 05/31/2024 Cholesterol Screening (Lipid Panel) 11/09/2024 Colorectal Cancer Screening: Colonoscopy 11/09/2024 Diabetes: Annual Urine Albumin-Creatinine Ratio (uACR) 11/09/2024 Diabetes: Blood Sugar Contro l Test (HGBA1C) 11/09/2024 Falls Risk Assessment 11/09/2024 Hepatitis C Screening 11/09/2024 Social Influencers of Health Screening 11/09/2024 Influenza Vaccine (#1) 2025 Osteoporosis Screening (Bone Density Screening) 03/03/2029 03/03/2019 RSV Immunization Adult Patie nts (1 - 1-dose 75+ series) 2033 HIB Vaccines Aged Out No longer eligi ble based on patient's age to complete this topic HPV Vaccines Aged Out No longer eligi ble based on patient's age to complete this topic Hepatitis A Vaccines Aged Out No long er eligible based on patient's age to complete this topic Hepatitis B Vaccines Aged Out No long er eligible based on patient's age to complete this topic IPV Vaccines Aged Out No longer eligi ble based on patient's age to complete this topic MMR Vaccines Aged Out No longer eligi ble based on patient's age to complete this topic Meningococcal ACWY Vaccine Aged Out N o longer eligible based on patient's age to complete this topic Meningococcal B Vaccine Aged Out No l onger eligible based on patient's age to complete this topic RSV Immunization Patients Un fabio 20 months Aged Out No longer eligible b ased on patient's age to complete this topic Varicella Vaccines Aged Out No longer eligible based on patient's age to complete this topic Procedures Procedure Name Priority Date/Time Associated Diagnosis Comments [facility] DEXA AXIAL SKELETON Routine 03/03/2019 10:04 AM EDT Other specified disorders of bone density and structure, other site [facility] SCREENING DIGITAL Routine 03/01/2019 8:24 AM EDT Encounter for screening mammogram for malignant neoplasm of breast from Last 3 Months or Most Recently Relevant to Health Maintenance Results * [facility] DEXA AXIAL SKELETON (03/03/2019 10:04 AM EDT) Anatomical Region Laterality Modality Mammography 03/03/2019 8:47 AM EDT Narrative 03/03/2019 10:04 AM EDT [facility] Diagnostic Imaging Department [address] [place] [id number] Patient: EMIR CISNEROSABHIJIT Young/Age/Sex: 1960 - 59 - F Unit#: [id number] Location/Status: SPDIMA/REG CLI Mnemonic[facility] Ordering Physician: LUCIEN CARDENAS MD [facility] Dexa Axial Skeleton - 03/03/19915 HISTORY: The patient is a 59-year-old postmenopausal female on chronic glucocorticoid therapy, with clinical concern for metabolic bone disease. FINDINGS: Dual energy x-ray absorptiometry of the lumbar spine and femurs is performed. The mean bone mineral density at L1-L4 is 1.138 gm/cm2 which is 96% of that of young normals and 102% of that of age matched controls. This yields a T-score of -0.4 and a Z-score of 0.2 and there is therefore no evidence of osteoporosis or osteopenia here. The mean bone mineral density of the femurs bilaterally is 1.069 gm/cm2 which is 106% of that of young normals and 112% of that of age matched controls. This yields a T-score of 0.5 and a Z-score of 0.9 and there is therefore no evidence of osteoporosis or osteopenia here. However, the T-score of the right femoral neck is -1.9 and that of the left femoral neck is -1.6 which is diagnostic of osteopenia. IMPRESSION: 1. Osteopenia. There has been a decrease of 3.9% in bone mineral density in the lumbar spine since the prior examination of 01/10/2016. There has been a decrease of 10.3% in bone mineral density in the right femur and a decrease of 2.3% in bone mineral density in the left femur. 2. FRAX analysis yields a 10-year probability of major osteoporotic fracture of 13.6% and a 10-year probability of hip fracture of 1.7%. Code 33249 Dictating Physician: KYRA RODRIGUEZ MD Electronically Signed by: KYRA RODRIGUEZ MD Dic Date/Time: 03/03/19 1002 Sign date/Time: 03/03/19 1004 Procedure Note Kyra Rodriguez - 05/19/2022 [facility] Diagnostic Imaging Department [address] [place] [address] Patient: ASHLEY CISNEROS /Age/Sex: 1960 - 59 - F Unit#: [id number] [facility] Ordering Physician: LUCIEN CARDENAS MD [facility] Dexa Axial Skeleton - 03/03/19915 HISTORY: The patient is a 59-year-old postmenopausal female on chronic glucocorticoid therapy, with clinical concern for metabolic bonedisease. FINDINGS: Dual energy x-ray absorptiometry of the lumbar spine and femursis performed. The mean bone mineral density at L1-L4 is 1.138 gm/cm2 which is96% of that of young normals and 102% of that of age matched controls. Thisyields a T-score of -0.4 and a Z-score of 0.2 and there is therefore no evidenceof osteoporosis or osteopenia here. The mean bone mineral density of the femurs bilaterally is 1.069 gm/fg5vzzgd is 106% of that of young normals and 112% of that of age matched controls.This yields a T-score of 0.5 and a Z-score of 0.9 and there is therefore noevidence of osteoporosis or osteopenia here. However, the T-score of the rightfemoral neck is -1.9 and that of the left femoral neck is -1.6 which is diagnosticof osteopenia. IMPRESSION: 1. Osteopenia. There has been a decrease of 3.9% in bone mineral densityin the lumbar spine since the prior examination of 01/10/2016. There has radha decrease of 10.3% in bone mineral density in the right femur and adecrease of 2.3% in bone mineral density in the left femur. 2. FRAX analysis yields a 10-year probability of major osteoporoticfracture of 13.6% and a 10-year probability of hip fracture of 1.7%. Code 23150 Dictating Physician: KYRA RODRIGUEZ MD Electronically Signed by: KYRA RODRIGUEZ MD Dic Date/Time: 03/03/19 1002 Sign date/Time: 03/03/19 1004 Lucien Cardenas MD IMG BI PROCEDURES Final Res ult * [facility] SCREENING DIGITAL (03/01/2019 8:24 AM EDT) Anatomical Region Laterality Modality Mammography 03/01/2019 7:12 AM EDT Narrative 03/01/2019 8:24 AM EDT [facility] Diagnostic Imaging Department [address] [place] [address] [id number] Patient: ASHLEY CISNEROS/Age/Sex: 1960 - 59 - F Unit#: [id number] Location/Status: [facility] CLI Mnemonic/Ordering Site: [facility] Ordering Physician: LUCIEN CARDENAS MD [facility] Screening Digital - 03/01/19811 HISTORY: The patient is a 59-year-old female presenting for routine screening mammography. FINDINGS: CC and MLO views of both breasts were obtained using full field digital mammography in the EVRGRe 2000-D unit. Computer aided detection with the iCAD Second Look 7.2-H was employed. In addition, breast tomosynthesis in MLO projection was performed. The breasts are again seen to be composed of a combination of fatty and fibroglandular elements (scattered areas of fibroglandular density, category B density), as also demonstrated on prior studies most recently 03/13/2017 and most remotely 02/13/2010. Bilateral punctate calcifications are without suspicious interval change. Anteriorly in the right breast just superior to the nipple line, seen on the MLO view only, there is a masslike density with adjacent architectural distortion with spiculations, not seen on prior studies. This is also not visualized on the tomographic images nor on the CC view. There is no cluster microcalcifications, skin thickening, or nipple retraction. IMPRESSION: Anteriorly in the right breast just superior to the nipple line, there is a masslike density with architectural distortion. As this is not seen on the tomographic images nor on the CC view, it is felt this most likely represents superimposition artifact. Nevertheless, as this was not seen on prior studies, further evaluation with spot compression MLO and full-field true lateral views is recommended. The patient will be contacted to arrange for this additional imaging. BIRADS Code Class 0: Incomplete. Need Additional Imaging Evaluation. PQRI CPT II 3340F Code 27608, 95344 PQRI 225 CPT II 7025F Dictating Physician: KYRA RODRIGUEZ MD Electronically Signed by: KYRA RODRIGUEZ MD Dic Date/Time: 03/01/19815 Sign date/Time: 03/01/19823 Procedure Note Kyra Rodriguez - 05/19/2022 [facility] Diagnostic Imaging Department [address] [place] [address] Patient: CISNEROSASHLEY D.O.B./Age/Sex: 1960 - 59 - F Unit#: [id number] Location/Status: SPDIMAM/REG CLI Mnemonic/Ordering Site: [facility] Ordering Physician: LUCIEN CARDENAS MD Khanh Screening Digital - 03/01/19811 HISTORY: The patient is a 59-year-old female presenting for routinescreening mammography. FINDINGS: CC and MLO views of both breasts were obtained using fullfield digital mammography in the [employer] 2000-D unit. Computer aideddetection with the iCAD Second Look 7.2-H was employed. In addition, breasttomosynthesis in MLO projection was performed. The breasts are again seen to be composed of a combination of fatty and fibroglandular elements (scattered areas of fibroglandular density,category B density), as also demonstrated on prior studies most recently 03/13/2017and most remotely 02/13/2010. Bilateral punctate calcifications are without suspicious interval change. Anteriorly in the right breast just superiorto the nipple line, seen on the MLO view only, there is a masslike density with adjacent architectural distortion with spiculations, not seen on priorstudies. This is also not visualized on the tomographic images nor on the CC view.There is no cluster microcalcifications, skin thickening, or nippleretraction. IMPRESSION: Anteriorly in the right breast just superior to the nippleline, there is a masslike density with architectural distortion. As this is notseen on the tomographic images nor on the CC view, it is felt this mostlikely represents superimposition artifact. Nevertheless, as this was not seenon prior studies, further evaluation with spot compression MLO and full-fieldtrue lateral views is recommended. The patient will be contacted to arrangefor this additional imaging. BIRADS Code Class 0: Incomplete. Need Additional Imaging Evaluation. PQRI CPT II 3340F Code 51827, 20018 PQRI 225 CPT II 7025F Dictating Physician: KYRA RODRIGUEZ MD Electronically Signed by: KYRA RODRIGUEZ MD Dic Date/Time: 03/01/19815 Sign date/Time: 03/01/19823 Lucien Cardenas MD IMG BI PROCEDURES Final Res ult from Last 3 Months or Most Recently Relevant to Health Maintenance [place] [address] [place] [address] Care Teams Unix Administrator Relationship Specialty Start Date End Date Rivera Chao [address] [place] [id number] PCP - General Internal Medicine 11/09/24
== END 2024-12-19 14:17 | disposition home or self-care (01) ==
LOC: HO.MAMMO 14:16
PROVIDERS: PCP Internal Medicine; Visit Provider Internal Medicine
DX: Z12.31 Encounter for screening mammogram for malignant neoplasm of breast (principal)
CPT/HCPCS: 77063; 77067

== ENCOUNTER → 2024-12-19 14:45 | Outpatient (BNV) | payer BC, SELFPAY | PROVIDERS: PCP Internal Medicine; Visit Provider Radiology Body Imaging | DX: Z12.31 Encounter for screening mammogram for malignant neoplasm of breast (principal) | CPT/HCPCS: 77063; 77067 ==